=== PATIENT | female | born 1995 | race African-American/Black ===

== ENCOUNTER 2018-11-27 05:27 | Emergency (ER) | payer MEDICAID ==
--- NOTE | 2018-11-27 08:12 | ER Document Report ---
HPI - HPI Time Seen by Provider: 11/27/18 08:09 Pain Level: 3 Notes: 23 female presents the ED with complaints of having sore throat for the last 4 days as well as left ear pain. Has not tried any qwut-[id number]-wuvgoll medications. Worse with time, nothing makes better. Does have sick children. Denies fevers, chills, chest pain,palpitations, shortness of breath, dyspnea, nausea, vomiting, diarrhea, abdominal pain, hematuria,, LH, dizziness, syncope, headaches, wheezing, neck pain, weakness, bowel or bladder dysfunction, saddle anesthesia, rash. - REPRODUCTIVE Reproductive: DENIES: : - DERM Skin Color: Normal Past Medical History - General Information source: Patient - Social History Smoking Status: Unknown if Ever Smoked Family History: Reviewed & Not Pertinent Vertical Provider Document - CONSTITUTIONAL Agree With Documented VS: Yes Exam Limitations: No Limitations Notes: PHYSICAL EXAMINATION: GENERAL: Well-appearing, well-nourished and in no acute distress. HEAD: Atraumatic, normocephalic. EYES: Pupils equal round and reactive to light, extraocular movements intact, conjunctiva are normal. ENT: Left TM intact with erythema, bulging, TM intact, right TM with serous effusion, intact, no erythema. Nares boggy bilaterally, oropharynx with erythema without exudates. Moist mucous membranes. NECK: Normal range of motion, supple without lymphadenopathy LUNGS: Breath sounds clear to auscultation bilaterally and equal. No wheezes rales or rhonchi. HEART: Regular rate and rhythm without murmurs ABDOMEN: Soft, nontender, nondistended abdomen. No guarding, no rebound. No masses appreciated. Female : deferred Musculoskeletal: Normal range of motion, no pitting or edema. No cyanosis. NEUROLOGICAL: Cranial nerves grossly intact. Normal speech, normal gait. Normal sensory, motor exams PSYCH: Normal mood, normal affect. SKIN: Warm, Dry, normal turgor, no rashes or lesions noted. - INFECTION CONTROL TRAVEL OUTSIDE OF THE [place] IN LAST 30 DAYS: No Course - Re-evaluation Re-evalutation: 11/27/18 09:13 Presentation is most consistent with an acute otitis media. Clinical history as well as exam is most consistent with this diagnosis. Based on history and examination do not suspect an acute meningitis, encephalitis, peritonsillar abscess, or retropharyngeal abscess. pt is otherwise well in appearance, no acute distress. Vitals otherwise within normal limits. The patient will be on zpack due to allergies to PCNs. At this time will discharge with return precautions and follow-up recommendations. Verbal discharge instructions given a the bedside to the parents and opportunity for questions given. Medication warnings reviewed. Parents are in agreement with this plan and has verbalized understanding of return precautions and the need for primary care follow-up in the next 24-72 hours. - Vital Signs Vital signs: Temp Pulse Resp BP Pulse Ox 98.1 F 81 14 121/81 100 11/27/18 08:03 11/27/18 08:03 11/27/18 08:03 11/27/18 08:03 11/27/18 08:03 Discharge - Discharge Clinical Impression: Cough Left otitis media Qualifiers: Otitis media type: suppurative Chronicity: acute Recurrence: recurrent Spontaneous tympanic membrane rupture: without spontaneous rupture Qualified Code(s): H66.005 - Acute suppurative otitis media without spontaneous rupture of ear drum, recurrent, left ear Condition: Stable Disposition: HOME, SELF-CARE Instructions: Cough Suppressant & Expectorant Medications, Otitis Media ([facility]) Additional Instructions: You have been diagnosed with an ear infection. Please take antibiotic as directed. eat yogurt to prevent loose stool. Take otc antipyretics as needed for any pain or fever. Follow-up with your PCP as needed. Return if becomes lethargic, has persistent vomiting, facial swelling, worsening pain despite antibiotics, or any other symptoms that are concerning to you, return to ER immediately. Prescriptions: Albuterol Sulfate [Proair Respiclick] 90 mcg IH Q4HP PRN #1 [id number] PRN Reason: RX: Azithromycin [Zithromax] 250 mg PO DAILY 5 Days #6 tablet Forms: Return to Work Referrals: BRUNO ALVARENGA MD [ACTIVE STAFF] - Follow up as needed
[2018-11-27 11:44] VITALS: BP 122/79
== END 2018-11-27 11:44 | disposition home or self-care (01) ==
LOC: ER 05:27
DX: H66.005 Acute suppurative otitis media without spontaneous rupture of ear drum, recurrent, left ear (principal); R05 Cough; J02.9 Acute pharyngitis, unspecified; H92.02 Otalgia, left ear
CPT/HCPCS: 87070; 87880; 99283

== ENCOUNTER 2020-03-25 20:29 | Emergency (ER) | payer MEDICAID ==
[2020-03-25 20:43] VITALS: BP 133/82
[2020-03-25] MEDS ORDERED: MUPIROCIN 2% OINTMENT 22 GM TP ONE (20:43)
[2020-03-25] MEDS ORDERED: CLINDAMYCIN HCL 150 MG CAPSULE PO ONE (20:43)
--- NOTE | 2020-03-25 20:53 | ER Document Report ---
ED Skin Rash/Insect Bite/Abscs - General Chief Complaint: Skin Problem Stated Complaint: CYST OR BOIL ON GROIN Time Seen by Provider: 03/25/20 20:43 Mode of Arrival: Ambulatory Information source: Patient Notes: 24-year-old female presents to ED for complaint of a boil to the left labia for about the last 5 or 6 days. She states it has gotten bigger. She is 38 weeks . She states she is 3 para 2. Past medical history is asthma and the resident. I have spoken with the ER doctors and with Dr. Rizzo also agreed that I should place her on antibiotics instructed on warm soaks and have her follow-up with [facility] in the morning. We will start her on clindamycin by mouth and Bactroban topically. Is also been given instructions on warm soaks. Constitutional: Negative for fever. HENT: Negative for sore throat. Eyes: Negative for visual changes. Cardiovascular: Negative for chest pain. Respiratory: Negative for shortness of breath. Gastrointestinal: Negative for abdominal pain, vomiting or diarrhea. Genitourinary: Negative for dysuria. Musculoskeletal: Negative for back pain. Skin: Left labial abscess Neurological: Negative for headaches, weakness or numbness. 10 point ROS negative except as marked above and in HPI. VITAL SIGNS: Within normal limits. GENERAL: No acute distress, non-toxic appearance. HEAD: Normal with no signs of head trauma. EYES: PERRLA, EOMI, conjunctiva normal, no discharge. EARS: Hearing grossly intact. NOSE: Normal. THROAT: Oropharynx is normal. NECK: Normal range of motion, no tenderness, supple, no lymphadenopathy, No adenopathy, no JVD. CHEST: Clear breath sounds bilaterally. No wheezes, rales, or rhonchi. CARDIAC: Regular rate and rhythm. S1 and S2, without murmurs, gallops, or rubs. VASCULAR: No Edema. Peripheral pulses normal and equal in all extremities. ABDOMEN: Normal and soft with no tenderness, no masses or pulsatile masses. GASTROINTESTINAL: Patient is 38 weeks GENITOURINARY: Patient has an abscess to the left labia. It is about the size of a round dime LYMPATHTIC: No lymphadenopathy noted. MUSCULOSKELETAL: Good range of motion of all major joints. Extremities without clubbing, cyanosis or edema. NEUROLOGICAL: Alert and oriented x 3. No focal sensory or strength deficits. Speech normal. Follows commands appropriately. PSYCHIATRIC: Normal Affect, judgement and mood. SKIN: Left labial abscess TRAVEL OUTSIDE OF THE [place] IN LAST 30 DAYS: No - HPI Patient complains to provider of: Tender/swollen area Onset: Last week Onset/Duration: Gradual Quality of pain: Throbbing Severity: Severe Pain Level: 5 Skin Character: Abscess - Left labia Identify cause: No Exacerbated by: Sitting, Movement, Walking Relieved by: Denies Similar symptoms previously: Yes Recently seen / treated by doctor: Yes - Related Data Allergies/Adverse Reactions: amoxicillin Adverse Reaction (Severe, Verified 11/27/18 07:59) Facial edema Penicillins Adverse Reaction (Verified 03/25/20 20:45) Past Medical History - General Information source: Patient - Social History Smoking Status: Never Smoker Chew tobacco use (# tins/day): No Frequency of alcohol use: None Drug Abuse: None Lives with: Family Family History: Reviewed & Not Pertinent Patient has suicidal ideation: No Patient has homicidal ideation: No - Past Medical History Cardiac Medical History: Reports: None Pulmonary Medical History: Reports: Hx Asthma EENT Medical History: Reports: None Neurological Medical History: Reports: None Endocrine Medical History: Reports: None Renal/ Medical History: Reports: None Malignancy Medical History: Reports: None GI Medical History: Reports: None Musculoskeletal Medical History: Reports None Skin Medical History: Reports Hx Cellulitis Psychiatric Medical History: Reports: None Traumatic Medical History: Reports: None Infectious Medical History: Reports: None Surgical Hx: Negative Past Surgical History: Reports: None Physical Exam - Vital signs Vitals: Temp Pulse Resp BP Pulse Ox 97.8 F 102 H 16 133/82 H 99 03/25/20 20:38 03/25/20 20:38 03/25/20 20:38 03/25/20 20:38 03/25/20 20:38 Course - Re-evaluation Re-evalutation: 03/25/20 20:54 I have discussed this abscess with Dr. Blanton and Dr. Newell both of which agreed that they would not do an I&D and a labial abscess on someone 38 weeks . I have discussed this with Dr. Rizzo who agreed the patient should be treated with antibiotics and follow-up in the women[facility] care tomorrow. Patient is allergic to amoxicillin penicillin and Keflex she will be started on clindamycin and Bactroban. She has been given instructions on warm soaks to the area. Patient verbalized understanding and agreement with treatment plan and patient was discharged home. - Vital Signs Vital signs: Temp Pulse Resp BP Pulse Ox 97.8 F 102 H 16 133/82 H 99 03/25/20 20:38 03/25/20 20:38 03/25/20 20:38 03/25/20 20:38 03/25/20 20:38 - Laboratory Results Critical Laboratory Results Reviewed: No Critical Results - Radiology Results Critical Radiology Results Reviewed: No Critical Results Discharge - Discharge Clinical Impression: Labial abscess Condition: Stable Disposition: HOME, SELF-CARE Additional Instructions: ABSCESS: You have an abscess (boil). This a pus-forming infection, usually due to staph. Some boils may be left to drain on their own, but most require lancing. From the time the tender lump first appears, it may be three or four days before the abscess is ready to faye. Local heat and rest help at this stage of treatment. An antibiotic may prevent spread of the infection. Once the abscess is opened, packing may be placed into it. This is done so pus is not sealed inside by premature closure of the cavity. The packing will be removed at your follow-up visit or you may be advised to remove it yourself at home. Sometimes this packing must be replaced a few times during healing. The wound will heal with surprisingly little scar. Depending on the size and location of an abscess, healing can take one to four weeks. You may shower and wash the area around the incision site two or three times a day. Antibiotics may be prescribed, but are usually not necessary after an abscess has been drained. If you develop fever, chills, worsening pain, or increasing swelling in the area, call the doctor or return immediately. Clindamycin You have been given a prescription for the antibiotic clindamycin. It is often prescribed for infections in the mouth, such as dental infections or abscesses, and for skin infections due to MRSA. It's important that you take all the medication, unless instructed otherwise by your physician. Failure to complete the entire course can result in relapse of your condition. Common side effects of antibiotics include nausea, intestinal cramping, or diarrhea. Women may develop vaginal yeast infections, and babies can get yeast (thrush) in the mouth following the use of antibiotics. Contact your physician if you develop significant side effects from this medication. Allergy to this antibiotic can result in hives, wheezing, faintness, or itching. If symptoms of allergy occur, stop the medication and call the doctor. Bactroban Ointment Bactroban is very effective against the germs that cause infection within the skin. It's useful for impetigo and other superficial infections. Deeper infections require antibiotics by mouth or by shot. Apply the medicine three times a day for one week, or longer if your doctor has advised it. Stop the medicine and call your doctor if you develop large blisters, severe itching, increasing pain, swelling, fever, or spreading redness. Epsom Salt Soaks Soak the wound area in a container of warm epsom salt water. If you can't get the wound area into a bucket or sheppard, use a folded towel soaked in the epsom salt solution and apply to the area. Use clean hot tap water (about the temperature of a very warm bath), mixing in about one (1) teaspoon for every pint of water. Two gallon --> 16 teaspoons Epsom Salts One gallon --> 8 teaspoons Epsom Salts Two quarts --> 4 teaspoons Epsom Salts One quart --> 2 teaspoons Epsom Salts Soak the wound for about 20 minutes while gently moving it around in the water. Repeat this four (4) times a day. FOLLOW-UP CARE: Most simple abscesses will not require a follow up visit. If you had packing placed in the abscess, remove it as instructed by the physician. If you have been referred to a physician for follow-up care, call the physicians office for an appointment as you were instructed or within the next two days. If you experience worsening or a significant change in your symptoms, return to the Emergency Department at any time for re-evaluation. Prescriptions: Mupirocin [Bactroban 2% Ointment 22 gm] 22 applic TP TID #1 tube Clindamycin HCl 300 mg PO TID #21 capsule Forms: Elevated Blood Pressure Referrals: [facility] [Provider Group] - Follow up tomorrow
== END 2020-03-25 21:00 | disposition home or self-care (01) ==
LOC: ER 20:29
DX: O26.893 Other specified pregnancy related conditions, third trimester (principal); N76.4 Abscess of vulva; Z3A.38 38 weeks gestation of pregnancy
CPT/HCPCS: 99283; J3490 ×2

== ENCOUNTER 2020-03-31 20:27 | Outpatient (CLI) | payer MEDICAID ==
[2020-03-31 21:19] LABS: APPEARANCE,URINE SLIGHTLY-CLOUDY; BILIRUBIN,URINE NEGATIVE (NEGATIVE); COLOR,URINE YELLOW; GLUCOSE, URINE NEGATIVE (NEGATIVE); KETONES,URINE NEGATIVE (NEGATIVE); LEUKOCYTE ESTERASE,URINE LARGE (NEGATIVE); NITRITE,URINE NEGATIVE (NEGATIVE); PROTEIN,URINE NEGATIVE (NEGATIVE); URINE SPECIFIC GRAVITY 1.016; UROBILINOGEN,URINE NEGATIVE mg/dL (<2.0)
[2020-03-31 21:59] LABS: URINE AMPHETAMINES SCREEN NEGATIVE; URINE BARBITURATES SCREEN NEGATIVE; URINE BENZODIAZEPINES SCREEN NEGATIVE; URINE COCAINE SCREEN NEGATIVE; URINE MARIJUANA (THC) SCREEN NEGATIVE; URINE METHADONE SCREEN NEGATIVE; URINE PHENCYCLIDINE SCREEN NEGATIVE
--- NOTE | 2020-03-31 22:25 | Non Stress Test Report ---
Non Stress Test Datetime Report Generated by CPN: 03/31/2020 22:25 DEMOGRAPHIC EGA NST: 38.3 INDICATION Indication for Study (NST) Other: vaginal bleeding VITAL SIGNS Temperature - NST: 98.7 Pulse - NST: 90 RESP - NST: 17 NBPSYS NST: 129 NBPDIA NST: 79 MONITORING Monitor Explained: Monitor Explained; Test Explained; Patient Verbalized Understanding Time on Monitor: 03/31/2020 20:47 Time off Monitor: 03/31/2020 21:47 NST Duration: 60 NST INTERVENTIONS NST Interventions: PO Hydration; Reposition Patient Physician Notified NST: Dr Gerry BABY A: [id number] BABY A Movement : Present Contraction Frequency : rare FHR Baseline : 140 Accelerations : 15X15 Decelerations : None Variability : Moderate 6-25bpm NST Review: Meets Criteria for Reactive NST NST Review and Verified By : Mamadou Girard RN NST Results: Reactive NST REPORT Report Trigger: Send Report
== END 2020-03-31 22:01 | disposition home or self-care (01) ==
LOC: LC 20:27
PROVIDERS: ATTEND Obstetrics & Gynecology
DX: O46.93 Antepartum hemorrhage, unspecified, third trimester (principal); Z3A.38 38 weeks gestation of pregnancy
CPT/HCPCS: 59025; 80307; 81005

== ENCOUNTER 2020-04-10 11:09 | Inpatient (IN) | payer MEDICAID ==
[2020-04-10] MEDS ORDERED: OXYTOCIN 10 UNIT/ML VIAL ONE (12:22)
[2020-04-10] MEDS ORDERED: LIDOCAINE 1% INJ-PF (10 MG/ML) 30 ML SDV ONE (12:22)
[2020-04-10] MEDS ORDERED: MISOPROSTOL 0.2 MG TABLET ONE (12:22)
[2020-04-10] MEDS ORDERED: OXYTOCIN/0.9 % SODIUM CHLORIDE 30 UNIT/500 ML RTUINJ ONE (12:23)
[2020-04-10] MEDS ORDERED: VANCOMYCIN HCL INJ 1000 MG VIAL ONE (12:28)
--- NOTE | 2020-04-10 12:45 | Admission Physical ---
Datetime Report Generated by CPN: 04/10/2020 12:45 CURRENT ADMISSION Hx Assessment: The History has been Reviewed and is Current Chief Complaint: Uterine Contractions Chief Complaint Other: Contractions since this AM at 10 am. Getting closer and more painful. Good FM. No LOF or VB Admit Impression : Term, Intrauterine ; Active Labor Admit Plan: Admit to Unit; Initiate Labor Protocol ALLERGIES Medication Allergies: Yes Medication Allergies: Penicillins (03/25/2020); amoxicillin/SV/Facial edema (11/27/2018) Latex: No Latex Allergies OBSTETRICAL HISTORY EDC: 04/11/2020 00:00 : 4 Para: 2 Term: 1 : 1 IAB: 1 Livin Obstetrical History Comments: G1:2016; 36 wks 7lbs 1 oz, male, vaginal G2: 2018, 37 wks, 6lbs 9 oz, male, vaginal G3:2020 5wks, EAB PHYSICAL EXAM General: Normal HEENT: Normal Neurologic: Normal Thyroid: Normal Heart: Normal Lungs: Normal Breast: Normal Back: Normal Abdomen: Normal Genitourinary Exam: Normal Extremities: Normal DTRs: Normal Pelvic Type: Adequate Vital Signs: Reviewed; Within Normal Limits VAGINAL EXAM Dilatation: 5 Effacement: 80 Station: -2 MEMBRANES Membranes: Bulging FETUS A EGA: 39.6 Monitoring: External US FHR- Baseline: 135 Variability: Moderate 6-25bpm Accelerations: 15X15 Decelerations: None FHR Category: Category I Presentation: Vertex Admit Comment: [id number] at 39.6 wks EGA in active labor. -admit to LDR -NPO and IVFs: LR at 150 cc after 1 liter bolus -CEFM and toco -GBS pos, PCN allergic: vancomycin 1gm IV now and continue Q 12 till delivery -Prior x2, anticipate INFORMED CONSENT Informed Consent Obtained: Vaginal Delivery; Risks, Benefits and Alternatives Discussed Signature: with User ID: Caro : with User ID: Caro
[2020-04-10] MEDS ORDERED: DIBUCAINE 1% OINTMENT 28 GM TP PRN (12:57)
[2020-04-10] MEDS ORDERED: MAG HYDROX/AL HYDROX/SIMETH SUSP 30 ML UDCUP PO PRN (12:57)
[2020-04-10] MEDS ORDERED: ACETAMINOPHEN 325 MG TABLET PO PRN (12:57)
[2020-04-10] MEDS ORDERED: GLYCERIN/WITCH HAZEL LEAF 1 EACH MED..WIPE TP PRN (12:57)
[2020-04-10] MEDS ORDERED: PSEUDOEPHEDRINE HCL 30 MG TABLET PO PRN (12:57)
[2020-04-10] MEDS ORDERED: ACETAMINOPHEN WITH CODEINE #3 TABLET PO PRN ×2 (12:57)
[2020-04-10] MEDS ORDERED: FAMOTIDINE 20 MG TABLET PO PRN (12:57)
[2020-04-10] MEDS ORDERED: DIPH/PERTUSS(ACELL)/TETANUS VAC/PF 0.5 ML SYR (>=10YO) IM PRN (12:57)
[2020-04-10] MEDS ORDERED: BENZOCAINE/MENTHOL AEROSOL SPRAY 56 ML TOP PRN (12:57)
[2020-04-10] MEDS ORDERED: MAGNESIUM HYDROXIDE SUSP 30 ML UDCUP PO PRN (12:57)
[2020-04-10] MEDS ORDERED: ZOLPIDEM TARTRATE 5 MG TABLET PO PRN (12:57)
[2020-04-10] MEDS ORDERED: VARICELLA VACC/PF (1350 UNIT/0.5 ML) 0.5 ML VIAL SUBCUT PRN (12:57)
[2020-04-10] MEDS ORDERED: DIPHENHYDRAMINE HCL 25 MG CAPSULE PO PRN (12:57)
[2020-04-10] MEDS ORDERED: OXYTOCIN/0.9 % SODIUM CHLORIDE 30 UNIT/500 ML RTUINJ IV PRN (12:57)
[2020-04-10] MEDS ORDERED: ACETAMINOPHEN 650 MG SUPP.RECT PR PRN (12:57)
[2020-04-10] MEDS ORDERED: MEASLES,MUMPS&RUBELLA VACC/PF 0.5 ML VIAL SUBCUT PRN (12:57)
[2020-04-10] MEDS ORDERED: IBUPROFEN 800 MG TABLET ONE (13:57)
[2020-04-10 14:05] LABS: APPEARANCE,URINE CLOUDY; BILIRUBIN,URINE NEGATIVE (NEGATIVE); COLOR,URINE YELLOW; GLUCOSE, URINE NEGATIVE (NEGATIVE); KETONES,URINE NEGATIVE (NEGATIVE); LEUKOCYTE ESTERASE,URINE LARGE (NEGATIVE); NITRITE,URINE NEGATIVE (NEGATIVE); PROTEIN,URINE NEGATIVE (NEGATIVE); URINE SPECIFIC GRAVITY 1.016; UROBILINOGEN,URINE NEGATIVE mg/dL (<2.0)
[2020-04-10 14:32] LABS: URINE AMPHETAMINES SCREEN NEGATIVE; URINE BARBITURATES SCREEN NEGATIVE; URINE BENZODIAZEPINES SCREEN NEGATIVE; URINE COCAINE SCREEN NEGATIVE; URINE MARIJUANA (THC) SCREEN NEGATIVE; URINE METHADONE SCREEN NEGATIVE; URINE PHENCYCLIDINE SCREEN NEGATIVE
[2020-04-10 15:05] LABS: ABSOLUTE LYMPHOCYTES (AUTO) 0.8 10^3/uL (0.5-4.7); ABSOLUTE MONOCYTES (AUTO) 0.4 10^3/uL (0.1-1.4); ABSOLUTE NEUT (AUTO) 10.5 10^3/uL (1.7-8.2); BASOPHILS % (AUTO) 0.2 % (0-2); EOSINOPHILS % (AUTO) 0.1 % (0-6); HEMATOCRIT 38.6 % (36.0-47.0); HEMOGLOBIN 13.2 g/dL (12.0-15.5); LYMPHOCYTES % (AUTO) 7.1 % (13-45); MEAN CORPUSCULAR HEMOGLOBIN 28.6 pg (27.0-33.4); MEAN CORPUSCULAR HGB CONC 34.2 g/dL (32.0-36.0); MEAN CORPUSCULAR VOLUME 84 fl (80-97); MONOCYTES % (AUTO) 3.3 % (3-13); PLATELET COUNT 168 10^3/uL (150-450); RED BLOOD COUNT 4.62 10^6/uL (3.72-5.28); RED CELL DISTRIBUTION WIDTH 13.5 % (11.5-14.0); SEGMENTED NEUTROPHILS % (AUTO) 89.3 % (42-78); TOTAL CELLS COUNTED % (AUTO) 100 %; WHITE BLOOD COUNT 11.8 10^3/uL (4.0-10.5)
[2020-04-10] MEDS: DOCUSATE SODIUM 100 MG CAPSULE PO SCH (17:54)
[2020-04-10] MEDS: FERROUS SULFATE 325 MG TABLET PO SCH (17:54)
[2020-04-10] MEDS: IBUPROFEN 800 MG TABLET PO SCH ×2 (20:07→21:32)
[2020-04-11] MEDS: IBUPROFEN 800 MG TABLET PO SCH ×3 (05:20→21:38)
[2020-04-11 06:17] LABS: HEMOGLOBIN 12.5 g/dL (12.0-15.5); MEAN CORPUSCULAR HEMOGLOBIN 28.3 pg (27.0-33.4); MEAN CORPUSCULAR HGB CONC 33.8 g/dL (32.0-36.0); MEAN CORPUSCULAR VOLUME 84 fl (80-97); PLATELET COUNT 162 10^3/uL (150-450); RED BLOOD COUNT 4.42 10^6/uL (3.72-5.28); RED CELL DISTRIBUTION WIDTH 13.4 % (11.5-14.0); WHITE BLOOD COUNT 10.6 10^3/uL (4.0-10.5)
--- NOTE | 2020-04-11 10:34 | PDOC PROGRESS REPORT ---
Subjective-OB Progress Note for:: 04/11/20 Subjective: Doing well, no c/o, ready to go home, voiding, eating well, scant to mod lochia Physical Exam (OB) Vital Signs: Temp Pulse Resp BP Pulse Ox 97.7 F 76 18 118/80 99 04/11/20 09:35 04/11/20 07:29 04/11/20 07:29 04/11/20 07:29 04/11/20 07:29 - PIH/Pre-Eclampsia DTR's: 2 + Clonus: Negative Headache: Absent Epigastric Pain: No Visual Changes: No - Maternal Morbidity 59. Maternal Morbidity (serious complications experinced by the mother associated with labor and delivery: None of the above - Lochia Lochia Amount: Scant < 10 ml Lochia Color: Rubra/Red - Abdomen Description: Tender, Soft Hernia Present: No Fundal Description: Firm, Midline Fundal Height: u/u - u/2 Objective-Diagnostic Laboratory: 04/11/20 06:00 04/10/20 04/10/20 04/10/20 12:10 14:37 14:37 WBC 11.8 H RBC 4.62 Hgb 13.2 Hct 38.6 MCV 84 MCH 28.6 MCHC 34.2 RDW 13.5 Plt Count 168 Seg Neutrophils % 89.3 H Urine Color YELLOW Urine Appearance CLOUDY Urine pH 8.0 Ur Specific [place] 1.016 Urine Protein NEGATIVE Urine Glucose (UA) NEGATIVE Urine Ketones NEGATIVE Urine Blood MODERATE H Urine Nitrite NEGATIVE Ur Leukocyte Esterase LARGE H Blood Type O POSITIVE Antibody Screen NEGATIVE 04/11/20 06:00 WBC 10.6 H RBC 4.42 Hgb 12.5 Hct 37.0 MCV 84 MCH 28.3 MCHC 33.8 RDW 13.4 Plt Count 162 Seg Neutrophils % Urine Color Urine Appearance Urine pH Ur Specific [place] Urine Protein Urine Glucose (UA) Urine Ketones Urine Blood Urine Nitrite Ur Leukocyte Esterase Blood Type Antibody Screen Assessment and Plan(PN) - Assessment and Plan (1) Labor, precipitous, delivered Is this a current diagnosis for this admission?: Yes (2) GBS (group B Streptococcus carrier), +RV culture, currently Is this a current diagnosis for this admission?: Yes (3) Vaginal delivery Is this a current diagnosis for this admission?: Yes - Time Spent with Patient Time with patient: Less than 15 minutes Medications reviewed and adjusted accordingly: Yes - Disposition Anticipated Discharge Disposition: Home, Self Care Anticipated Discharge Timeframe: within 24 hours
[2020-04-11] MEDS: DOCUSATE SODIUM 100 MG CAPSULE PO SCH ×2 (10:50→17:25)
[2020-04-11] MEDS: SENNOSIDES/DOCUSATE 8.6-50 MG 1 EACH TABLET PO SCH (10:50)
[2020-04-11] MEDS: PRENATAL VITAMIN W DHA CAPSULE PO SCH (10:50)
[2020-04-11] MEDS: FERROUS SULFATE 325 MG TABLET PO SCH ×2 (10:50→17:25)
[2020-04-12] MEDS: IBUPROFEN 800 MG TABLET PO SCH (06:05)
[2020-04-12 08:03] VITALS: BP 120/79
[2020-04-12] MEDS: FERROUS SULFATE 325 MG TABLET PO SCH (09:57)
[2020-04-12] MEDS: PRENATAL VITAMIN W DHA CAPSULE PO SCH (09:57)
[2020-04-12] MEDS: SENNOSIDES/DOCUSATE 8.6-50 MG 1 EACH TABLET PO SCH (09:57)
[2020-04-12] MEDS: DOCUSATE SODIUM 100 MG CAPSULE PO SCH (09:57)
--- NOTE | 2020-04-12 10:39 | PDOC PROGRESS REPORT ---
Subjective-OB Progress Note for:: 04/12/20 Subjective: Doing well, ready to go home, bottle feeding, scant bleeding, voiding Physical Exam (OB) Vital Signs: Temp Pulse Resp BP Pulse Ox 97.7 F 92 16 120/79 97 04/12/20 10:00 04/12/20 07:29 04/12/20 07:29 04/12/20 07:29 04/12/20 07:29 Intake & Output 04/11/20 04/12/20 04/13/20 06:59 06:59 06:59 Intake Total 480 Balance 480 - PIH/Pre-Eclampsia DTR's: 2 + Clonus: Negative Headache: Absent Epigastric Pain: No Visual Changes: No - Maternal Morbidity 59. Maternal Morbidity (serious complications experinced by the mother associated with labor and delivery: None of the above - Lochia Lochia Amount: Scant < 10 ml Lochia Color: Rubra/Red - Abdomen Description: Soft, Flat Hernia Present: No Fundal Description: Firm, Midline Fundal Height: u/u - u/2 Objective-Diagnostic Laboratory: 04/11/20 06:00 Assessment and Plan(PN) - Assessment and Plan (1) Labor, precipitous, delivered Is this a current diagnosis for this admission?: Yes (2) GBS (group B Streptococcus carrier), +RV culture, currently Is this a current diagnosis for this admission?: Yes (3) Vaginal delivery Is this a current diagnosis for this admission?: Yes - Time Spent with Patient Time with patient: Less than 15 minutes Medications reviewed and adjusted accordingly: Yes - Disposition Anticipated Discharge Disposition: Home, Self Care Anticipated Discharge Timeframe: within 24 hours
--- NOTE | 2020-04-12 10:45 | PDOC DISCHARGE SUMMARY ---
Impression - Admit/DC Date/PCP Admission Date/Primary Care Provider: 04/10/20 12:23 ARIANA KELLEY MD Discharge Date: 04/12/20 - Discharge Diagnosis (1) Labor, precipitous, delivered Is this a current diagnosis for this admission?: Yes (2) GBS (group B Streptococcus carrier), +RV culture, currently Is this a current diagnosis for this admission?: Yes (3) Vaginal delivery Is this a current diagnosis for this admission?: Yes - Additional Information Resuscitation Status: Full Code Discharge Diet: As Tolerated, Regular Discharge Activity: Pelvic Rest Referrals: ARIANA KELLEY MD [Primary Care Provider] - (rtc 4 weeks) Home Medications: Vits96/Iron Fum/Folic [ Tablet] 1 each PO DAILY 04/12/20 HPI Gestational Age: 39.6 Reason(s) for Admission: Onset of Labor, Group B Strep Positive Procedures: Ultrasound Intrapartum Procedure(s): Spontaneous Vaginal Delivery Complication(s): Laceration-Vaginal, Laceration-Perineal Laceration-Degree: 1st Hospital Course Hospital Course: routine 59. Maternal Morbidity (serious complications experinced by the mother associated with labor and delivery: None of the above Results Laboratory Results: WBC 10.6 10^3/uL (4.0-10.5) H 04/11/20 06:00 RBC 4.42 10^6/uL (3.72-5.28) 04/11/20 06:00 Hgb 12.5 g/dL (12.0-15.5) 04/11/20 06:00 Hct 37.0 % (36.0-47.0) 04/11/20 06:00 MCV 84 fl (80-97) 04/11/20 06:00 MCH 28.3 pg (27.0-33.4) 04/11/20 06:00 MCHC 33.8 g/dL (32.0-36.0) 04/11/20 06:00 RDW 13.4 % (11.5-14.0) 04/11/20 06:00 Plt Count 162 10^3/uL (150-450) 04/11/20 06:00 Lymph % (Auto) 7.1 % (13-45) L 04/10/20 14:37 Jack % (Auto) 3.3 % (3-13) 04/10/20 14:37 Eos % (Auto) 0.1 % (0-6) 04/10/20 14:37 Baso % (Auto) 0.2 % (0-2) 04/10/20 14:37 Absolute Neuts (auto) 10.5 10^3/uL (1.7-8.2) H 04/10/20 14:37 Absolute Lymphs (auto) 0.8 10^3/uL (0.5-4.7) 04/10/20 14:37 Absolute Monos (auto) 0.4 10^3/uL (0.1-1.4) 04/10/20 14:37 Absolute Eos (auto) 0.0 10^3/uL (0.0-0.6) 04/10/20 14:37 Absolute Basos (auto) 0.0 10^3/uL (0.0-0.2) 04/10/20 14:37 Seg Neutrophils % 89.3 % (42-78) H 04/10/20 14:37 Urine Color YELLOW 04/10/20 12:10 Urine Appearance CLOUDY 04/10/20 12:10 Urine pH 8.0 (5.0-9.0) 04/10/20 12:10 Ur Specific [place] 1.016 04/10/20 12:10 Urine Protein NEGATIVE mg/dL (NEGATIVE) 04/10/20 12:10 Urine Glucose (UA) NEGATIVE mg/dL (NEGATIVE) 04/10/20 12:10 Urine Ketones NEGATIVE mg/dL (NEGATIVE) 04/10/20 12:10 Urine Blood MODERATE (NEGATIVE) H 04/10/20 12:10 Urine Nitrite NEGATIVE (NEGATIVE) 04/10/20 12:10 Urine Bilirubin NEGATIVE (NEGATIVE) 04/10/20 12:10 Urine Urobilinogen NEGATIVE mg/dL (<2.0) 04/10/20 12:10 Ur Leukocyte Esterase LARGE (NEGATIVE) H 04/10/20 12:10 Urine Ascorbic Acid NEGATIVE (NEGATIVE) 04/10/20 12:10 Urine Opiates Screen NEGATIVE 04/10/20 12:10 Urine Methadone Screen NEGATIVE 04/10/20 12:10 Ur Barbiturates Screen NEGATIVE 04/10/20 12:10 Ur Phencyclidine Scrn NEGATIVE 04/10/20 12:10 Ur Amphetamines Screen NEGATIVE 04/10/20 12:10 U Benzodiazepines Scrn NEGATIVE 04/10/20 12:10 Urine Cocaine Screen NEGATIVE 04/10/20 12:10 U Marijuana (THC) Screen NEGATIVE 04/10/20 12:10 Blood Type O POSITIVE 04/10/20 14:37 Antibody Screen NEGATIVE 04/10/20 14:37 Plan Health Concerns: routine Plan of Treatment: discharge home. Rev S&S to report Goals: no complications Time Spent: Less than 30 Minutes
--- NOTE | 2020-04-14 11:46 | Delivery Summary ---
Del Sum A-C Datetime Report Generated by CPN: 04/14/2020 11:45 DELIVERY PERSONNEL DELIVERY PERSONNEL: [id number] Delivery Doctor:: Sammie Ovalle MD Labor and Delivery Nurse:: Alise Olson RNend finder twisting department Nurse:: Tammie JainDIMPLE MATERNAL INFORMATION Delivery Anesthesia: None Medications After Delivery: Pitocin 30 Units in 500ml NS/D5W Estimated Blood Loss (ml): 100 Maternal Complications: None Provider Comments: Called to patients room as she was complete and +2 with urge to push Patient pushed through 1 contraction and a viable female was delivered in JOSE presentation. Infant vigorously crying. Cord clamping delayed for 30 seconds. After cord cut and clamped, infant placed skin to skin. Both Mother and infant stable. LABOR SUMMARY EDC: 04/11/2020 00:00 No. Babies in Womb: 1 Attempted: No Labor Anesthesia: None LABOR INFORMATION Reason for Induction: Not Applicable Oxytocin: N/A Group B Beta Strep: Positive Antibiotics # of Doses: 1 Antibiotics Time of Last Dose: 04/10/2020 12:35 Name of Antibiotic Given: Vancomycin Steroids Given: None Reason Steroids Not Administered: Not Applicable MEMBRANES Membranes Rupture Method: Spontaneous Rupture of Membranes: 04/10/2020 12:20 Length of Rupture (hr): 0.12 Amniotic Fluid Color: Clear Amniotic Fluid Amount: Moderate Amniotic Fluid Odor: Normal STAGES OF LABOR Stage 3 hr: 0 Stage 3 min: 4 VAGINAL DELIVERY Episiotomy: None Laceration #1: Perineal Laceration Extension #1: First Degree Laceration Repair: Yes Laceration Repair Note: 3-0 chromic in a running fashion Sponge Count Correct: Yes Sharps Count Correct: Yes BABY A INFORMATION Delivery Date/Time: 04/10/2020 12:27 Method of Delivery: Vaginal Method of Delivery: Vaginal Nurse Controlled Delivery: No Born in Route : No : N/A Forceps: N/A Vacuum Extraction: N/A Shoulder Dystocia : No PRESENTATION/POSITION BABY A Presentation: Cephalic Cephalic Presentation: Vertex Breech Presentation: N/A PLACENTA INFORMATION BABY A Placenta Delivery Time : 04/10/2020 12:31 Placenta Method of Delivery: Spontaneous Placenta Status: Delivered SCORES BABY A Heart Rate 1 min: >100 bpm Resp Effort 1 min: Good Cry Reflex Irritability 1 min: Cough or Sneeze or Pulls Away Muscle Tone 1 min: Active Motion Color 1 min: Body [place], Extremities Blue Resuscitation Effort 1 min: Tactile Stimulation SCORE 1 MIN: 9 Heart Rate 5 min: >100 bpm Resp Effort 5 min: Good Cry Reflex Irritability 5 min: Cough or Sneeze or Pulls Away Muscle Tone 5 min: Active Motion Color 5 min: Body [place], Extremities Blue Resuscitation Effort 5 min: Tactile Stimulation SCORE 5 MIN: 9 Heart Rate 10 min: >100 bpm Resp Effort 10 min: Good Cry Reflex Irritability 10 min: Cough or Sneeze or Pulls Away Color 10 min: Body [place], Extremities Blue Resuscitation Effort 10 min: Tactile Stimulation INFANT INFORMATION BABY A Gestational Age at Delivery: 39.6 Gestational Status: Full Term- 39- 40.6 Weeks Infant Outcome : Liveborn Infant Condition : Stable Infant Sex: Female Infant Sex: Female WEIGHT/LENGTH BABY A Infant Birthweight (gm): 3225 Infant Weight (lb): 7 Weight (oz): 2 Infant Length (in): 20.00 Infant Length (cm): 50.80 CORD INFORMATION BABY A No. Cord Vessels: 3 Nuchal Cord : Around Neck x2, Tight Nuchal Cord- Other: right ankle Cord Blood Taken: Yes-For Eval (Mom's Blood Type - or O+) Infant Suction: Mouth; Nose ASSESSMENT BABY A Infant Complications: None Physical Findings at Delivery: Within Normal Limits Respirations: Appears Normal Skin to Skin: Yes Hearing And Speech Assistant/ALS Called : No Transferred To: Remains with Mother BABY B INFORMATION : N/A SIGNATURES Signature: with User ID: Caro : with User ID: [email or web address]
== END 2020-04-12 12:35 | disposition home or self-care (01) | DRG 807 ==
LOC: LC 11:09 → LR 12:23 → 2S 15:40
PROVIDERS: ADMIT Obstetrics & Gynecology; ATTEND Obstetrics & Gynecology
PROC: 10E0XZZ Delivery of Products of Conception, External Approach (ICD-10-PCS; principal; 2020-04-10)
PROC: 0HQ9XZZ Repair Perineum Skin, External Approach (ICD-10-PCS; 2020-04-10)
DX: O62.3 Precipitate labor (principal); Z37.0 Single live birth; O99.824 Streptococcus B carrier state complicating childbirth; O70.0 First degree perineal laceration during delivery; Z3A.39 39 weeks gestation of pregnancy; O69.1XX0 Labor and delivery complicated by cord around neck, with compression, not applicable or unspecified; Z88.0 Allergy status to penicillin
CPT/HCPCS: 36415; 80307; 81005; 85025; 85027; 86592; 86850; 86900; 86901; J2590; J3370; J3490